=== PATIENT | female | born 1960 | race Caucasian/White ===

== ENCOUNTER 2023-01-08 09:06 | Outpatient (CLI) | payer OTHER ==
[2023-01-08] MEDS ORDERED: BARIUM SULFATE 135 ML SUSP.RECON (E-Z-HD) PO ONE (10:19)
== END 2023-01-08 19:26 | disposition home or self-care (01) ==
LOC: SRD 09:06
DX: Z12.11 Encounter for screening for malignant neoplasm of colon (principal); R13.10 Dysphagia, unspecified
CPT/HCPCS: 74220-TC

== ENCOUNTER 2023-01-23 06:25 | Day surgery (SDC) | payer OTHER ==
[~2023-01-23] VITALS: Ht 160 cm; Wt 68.0 kg
[2023-01-23] MEDS ORDERED: SIMETHICONE 40 MG/0.6 ML ML ONE (07:47)
[2023-01-23] MEDS ORDERED: MIDAZOLAM HCL 5 MG/5 ML VIAL ONE (07:48)
[2023-01-23] MEDS ORDERED: MEPERIDINE 100 MG INJ. 100 MG/ML VIAL ONE (07:48)
[2023-01-23] MEDS ORDERED: BENZOCAINE 20% 0.5mL UD SPRAY MM ONE (08:18)
[2023-01-23 13:39] VITALS: O2SAT 99
[2023-01-23 19:13] VITALS: BP_SYST 134; PULSE 67; RESP 17
== END 2023-01-23 09:40 | disposition home or self-care (01) ==
LOC: SDS 06:25 → SMU 06:39 → SDS 09:40
PROVIDERS: ATTEND Student in an Organized Health Care Education/Training Program
DX: R13.10 Dysphagia, unspecified (principal); K29.50 Unspecified chronic gastritis without bleeding; K44.9 Diaphragmatic hernia without obstruction or gangrene; K22.2 Esophageal obstruction
CPT/HCPCS: 43239; 99152; 88305; 88312; 88313; G0378; J2250; J2175